=== PATIENT | female | born 1975 | race African-American/Black ===

== ENCOUNTER 2018-08-31 23:33 | Emergency (ER) | payer MEDICAID ==
[~2018-08-31] VITALS: Ht 157.5 cm; Wt 55.0 kg
[2018-09-01 03:22] LABS: CHLORIDE 107 mEq/L (98-107)
[2018-09-01 03:41] LABS: EOSINOPHILS % 2.8 % (0.0-5.0); HEMATOCRIT. 25.9 % (36.0-48.0); HEMOGLOBIN. 8.6 g/dL (12.0-16.0); LYMPHOCYTES % 29.1 % (20.0-50.0); MEAN CORPUSCULAR HEMOGLOBIN 25.5 pg (28.0-32.0); MEAN CORPUSCULAR VOLUME 76.7 fL (81.0-99.0); MEAN PLATELET VOLUME 7.9 fl (7.4-10.4); MONOCYTES % 7.8 % (2.0-8.0); NEUTROPHILS % 59.3 % (40.0-76.0); PLATELET 313 x1000/uL (130-400); RED BLOOD CELL COUNT 3.37 mill/uL (4.2-5.4); RED CELL DISTRIBUTION WIDTH 26.4 % (11.6-14.6)
[2018-09-01 03:54] LABS: CLARITY URINE CLOUDY (CLEAR); COLOR URINE RED (YELLOW); KETONES URINE NEGATIVE (NEGATIVE); LEUKOCYTE ESTERASE URINE 2+ (NEGATIVE); NITRITE URINE NEGATIVE (NEGATIVE); OCCULT BLOOD URINE 3+ (NEGATIVE); PROTEIN URINE 1+ (NEGATIVE); SPECIFIC GRAVITY URINE 1.011 (1.005-1.030); UROBILINOGEN URINE 0.2 E.U./dL (0.2-1.0)
[2018-09-01] MEDS ORDERED: MORPHINE SULFATE 2 MG/ML CPJ (NOT FOR IM USE) IV ONE (04:00)
[2018-09-01 05:10] LABS: PLATELET ESTIMATE NORMAL
[2018-09-01 05:32] LABS: BASOPHILS % 0.5 % (0.0-2.0); EOSINOPHILS % 3.1 % (0.0-5.0); HEMATOCRIT. 25.6 % (36.0-48.0); HEMOGLOBIN. 8.2 g/dL (12.0-16.0); LYMPHOCYTES % 28.5 % (20.0-50.0); MEAN CORPUSCULAR HEMOGLOBIN 24.7 pg (28.0-32.0); MEAN CORPUSCULAR VOLUME 76.5 fL (81.0-99.0); MEAN PLATELET VOLUME 7.8 fl (7.4-10.4); MONOCYTES % 5.7 % (2.0-8.0); NEUTROPHILS % 62.2 % (40.0-76.0); PLATELET 310 x1000/uL (130-400); RED BLOOD CELL COUNT 3.34 mill/uL (4.2-5.4); RED CELL DISTRIBUTION WIDTH 26.1 % (11.6-14.6)
[2018-09-01] MEDS ORDERED: IBUPROFEN 600MG TABLET PO ONE (06:00)
[2018-09-01 06:29] VITALS: BP 125/71
== END 2018-09-01 06:34 | disposition home or self-care (01) ==
LOC: ER 23:33
DX: N93.9 Abnormal uterine and vaginal bleeding, unspecified (principal); N30.00 Acute cystitis without hematuria; D25.9 Leiomyoma of uterus, unspecified; N83.201 Unspecified ovarian cyst, right side; D64.9 Anemia, unspecified; I49.9 Cardiac arrhythmia, unspecified; R03.0 Elevated blood-pressure reading, without diagnosis of hypertension; Z98.890 Other specified postprocedural states; Z98.51 Tubal ligation status
CPT/HCPCS: 36415; 76830; 76856; 80053; 81003; 81025; 85025; 96374; 99285; J2270; Z7610

== ENCOUNTER 2019-09-04 16:47 | Emergency (ER) | payer MEDICAID ==
[~2019-09-04] VITALS: Ht 160 cm; Wt 56.0 kg
[2019-09-04] MEDS ORDERED: VISCOUS LIDOCAINE 2% 15 ML UDC PO ONE (18:30)
[2019-09-04] MEDS ORDERED: MAGNESIUM/ALUMINUM HYDROXIDE/SIMETHICONE 30ML UDC PO ONE (18:30)
[2019-09-04] MEDS ORDERED: ASPIRIN 81MG TABLET PO ONE (18:30)
[2019-09-04 19:08] LABS: BASOPHILS % 0.3 % (0.0-2.0); EOSINOPHILS % 1.5 % (0.0-5.0); HEMATOCRIT. 35.5 % (36.0-48.0); HEMOGLOBIN. 12.2 g/dL (12.0-16.0); MEAN CORPUSCULAR HEMOGLOBIN 33.2 pg (28.0-32.0); MEAN CORPUSCULAR VOLUME 97.1 fL (81.0-99.0); MEAN PLATELET VOLUME 8.4 fl (7.4-10.4); MONOCYTES % 7.9 % (2.0-8.0); NEUTROPHILS % 53.3 % (40.0-76.0); PLATELET 237 x1000/uL (130-400); RED BLOOD CELL COUNT 3.66 mill/uL (4.2-5.4); RED CELL DISTRIBUTION WIDTH 12.9 % (11.6-14.6)
[2019-09-04 19:10] LABS: CHLORIDE 106 mEq/L (98-107)
[2019-09-04] MEDS ORDERED: KETOROLAC 30MG/ML VIAL IV ONE (21:45)
[2019-09-04 21:50] VITALS: BP 144/80
== END 2019-09-04 22:04 | disposition home or self-care (01) ==
LOC: ER 16:47
DX: R07.89 Other chest pain (principal); M79.601 Pain in right arm; I51.9 Heart disease, unspecified; D64.9 Anemia, unspecified; Z98.890 Other specified postprocedural states
CPT/HCPCS: 36415; 71045; 80053; 81025; 83880; 84484; 85025; 93005; 96374; 99284; J1885; Z7610

== ENCOUNTER 2020-11-26 23:22 | Emergency (ER) | payer MEDICAID ==
[~2020-11-26] VITALS: Ht 157.5 cm; Wt 59.0 kg
[2020-11-27] MEDS ORDERED: SODIUM CHLORIDE 0.9% 1,000 ML IV ONE (01:15)
[2020-11-27 02:16] LABS: BASOPHILS % 0.7 % (0.0-2.0); EOSINOPHILS % 1.7 % (0.0-5.0); HEMATOCRIT. 23.1 % (36.0-48.0); LYMPHOCYTES % 44.8 % (20.0-50.0); MEAN CORPUSCULAR HEMOGLOBIN 20.7 pg (28.0-32.0); MEAN CORPUSCULAR VOLUME 68.5 fL (81.0-99.0); MONOCYTES % 5.1 % (2.0-8.0); NEUTROPHILS % 47.7 % (40.0-76.0); PLATELET 335 x1000/uL (130-400); RED BLOOD CELL COUNT 3.38 mill/uL (4.2-5.4); RED CELL DISTRIBUTION WIDTH 20.7 % (11.6-14.6)
[2020-11-27 02:18] LABS: CHLORIDE 107 mEq/L (98-107)
[2020-11-27 02:22] LABS: HCG SCREEN NEGATIVE
[2020-11-27 02:54] LABS: PLATELET ESTIMATE NORMAL
[2020-11-27 10:25] VITALS: BP 135/77
== END 2020-11-27 10:26 | disposition home or self-care (01) ==
LOC: ER 23:22
DX: R53.1 Weakness (principal); D64.9 Anemia, unspecified; Z98.890 Other specified postprocedural states
CPT/HCPCS: 36415; 80053; 84703; 85025; 86850; 86900; 86901; 86920; 96360; 96361; 99285; J7030; P9016

== ENCOUNTER 2021-04-01 21:36 | Emergency (ER) | payer MEDICAID, OTHER ==
[~2021-04-01] VITALS: Ht 157.5 cm; Wt 53.0 kg
[2021-04-01 22:42] VITALS: BP 166/82
[2021-04-02 00:36] LABS: BASOPHILS % 0.9 % (0.0-2.0); EOSINOPHILS % 1.4 % (0.0-5.0); HEMATOCRIT. 26.2 % (36.0-48.0); HEMOGLOBIN. 8.1 g/dL (12.0-16.0); LYMPHOCYTES % 34.6 % (20.0-50.0); MEAN PLATELET VOLUME 7.7 fl (7.4-10.4); MONOCYTES % 6.1 % (2.0-8.0); PLATELET 359 x1000/uL (130-400); RED CELL DISTRIBUTION WIDTH 19.5 % (11.6-14.6)
[2021-04-02 00:40] LABS: CHLORIDE 110 mEq/L (98-107)
[2021-04-02 00:46] LABS: HCG SCREEN NEGATIVE
[2021-04-02] MEDS ORDERED: FERR-71 MT (03:45)
[2021-04-02] MEDS ORDERED: DOCU-138 MT (03:45)
== END 2021-04-02 03:57 | disposition home or self-care (01) ==
LOC: ER 21:36
DX: D64.9 Anemia, unspecified (principal); R07.89 Other chest pain; R00.2 Palpitations; I10 Essential (primary) hypertension; Z98.890 Other specified postprocedural states; Z79.899 Other long term (current) drug therapy
CPT/HCPCS: 36415; 71045; 80053; 84484; 84703; 85025; 86850; 86900; 93005; 99285

== ENCOUNTER 2022-02-28 19:15 | Inpatient (IN) | payer MEDICAID, OTHER ==
[~2022-02-28] VITALS: Ht 157.5 cm; Wt 51.3 kg
[~2022-02-28 19:15] MED LIST: DOCU-138 MT; FERR-71 MT
[2022-02-28 23:28] LABS: *AMPHETAMINES SCREEN URINE NEGATIVE (NEGATIVE); *BENZODIAZEPINES SCREEN URINE NEGATIVE (NEGATIVE); METHADONE URINE SCREEN NEGATIVE (NEGATIVE); OPIATES URINE SCREEN NEGATIVE (NEGATIVE); PHENCYCLIDINE URINE SCREEN NEGATIVE (NEGATIVE)
[2022-02-28 23:29] LABS: *BARBITURATES SCREEN URINE NEGATIVE (NEGATIVE); *COCAINE SCREEN URINE NEGATIVE (NEGATIVE)
[2022-02-28 23:31] LABS: CANNABINOID URINE SCREEN PRESUMTIVE POSITIVE (NEGATIVE)
[2022-03-01] VITALS (20 sets, daily range): BP systolic 95–171; BP diastolic 55–98
[2022-03-01 00:20] LABS: CHLORIDE 110 mEq/L (98-107)
[2022-03-01 00:24] LABS: ETHANOL BLOOD < 10 mg/dL
[2022-03-01 00:29] LABS: BASOPHILS % 0.3 % (0.0-2.0); EOSINOPHILS % 0.1 % (0.0-5.0); LYMPHOCYTES % 15.1 % (20.0-50.0); MEAN CORPUSCULAR HEMOGLOBIN 19.1 pg (28.0-32.0); MEAN CORPUSCULAR VOLUME 64.1 fL (81.0-99.0); MEAN PLATELET VOLUME 8.2 fl (7.4-10.4); MONOCYTES % 5.1 % (2.0-8.0); NEUTROPHILS % 79.4 % (40.0-76.0); PLATELET 274 x1000/uL (130-400); RED BLOOD CELL COUNT 3.03 mill/uL (4.2-5.4); RED CELL DISTRIBUTION WIDTH 21.1 % (11.6-14.6)
[2022-03-01 00:35] LABS: HEMATOCRIT. 19.4 % (36.0-48.0); HEMOGLOBIN. 5.8 g/dL (12.0-16.0)
[2022-03-01] MEDS ORDERED: ACETAMINOPHEN 500MG TABLET PO ONE (03:30)
[2022-03-01] MEDS ORDERED: DIPHENHYDRAMINE 50MG CAPSULE PO SCH (03:30)
[2022-03-01 03:38] LABS: PLATELET ESTIMATE NORMAL
[2022-03-01] MEDS: AMLODIPINE 10MG TABLET PO SCH (09:04)
[2022-03-01 11:18] LABS: HEMATOCRIT 19.9 % (36.0-48.0); HEMOGLOBIN 5.9 g/dL (12.0-16.0)
[2022-03-01 11:23] LABS: CLARITY URINE CLOUDY (CLEAR); COLOR URINE YELLOW (YELLOW); KETONES URINE 1+ (NEGATIVE); LEUKOCYTE ESTERASE URINE 3+ (NEGATIVE); NITRITE URINE POSITIVE (NEGATIVE); OCCULT BLOOD URINE TRACE (NEGATIVE); PH URINE 6.5 (4.5-8.0); PROTEIN URINE TRACE (NEGATIVE)
[2022-03-01] MEDS ORDERED: CEFTRIAXONE 1 G PREMIX 50 ML IV SCH (12:00)
[2022-03-01] MEDS: CEFTRIAXONE 1,000 MG in DEXTROSE 5% WATER 50 ML IV SCH (14:16)
[2022-03-01] MEDS ORDERED: DIPHENHYDRAMINE 25MG CAPSULE PO PRN (14:45)
[2022-03-01] MEDS: ACETAMINOPHEN 325MG TABLET PO PRN (16:09)
[2022-03-01 16:57] LABS: TOTAL IRON BINDING CAPACITY 393 ug/dL (250-450)
[2022-03-01 17:16] LABS: FOLIC ACID (FOLATE) SERUM 8.2 ng/mL (>5.38)
[2022-03-01 20:44] LABS: HEMATOCRIT 25.2 % (36.0-48.0); HEMOGLOBIN 7.8 g/dL (12.0-16.0)
[2022-03-01 20:51] LABS: HCG SCREEN NEGATIVE
[2022-03-01] MEDS: ONDANSETRON HCL 4MG/2ML INJ IV PRN (23:10)
[2022-03-01] MEDS ORDERED: IOHEXOL-300 100 ML BOTTLE ONE (23:25)
[2022-03-01] MEDS ORDERED: CLONIDINE 0.1MG TABLET PO PRN (23:30)
[2022-03-01] MEDS: HYDROCODONE/ACETAMINOPHEN 5/325MG TABLET PO PRN (23:37)
[2022-03-01] MEDS ORDERED: NALOXONE HCL 0.4 MG/ML 1ML VIAL IV PRN (23:45)
[2022-03-02] VITALS (12 sets, daily range): BP systolic 101–136; BP diastolic 51–85
[2022-03-02 00:44] LABS: HEMATOCRIT 24.6 % (36.0-48.0); HEMOGLOBIN 7.6 g/dL (12.0-16.0)
[2022-03-02 06:39] LABS: HEMOGLOBIN. 7.6 g/dL (12.0-16.0); MEAN CORPUSCULAR HEMOGLOBIN 21.1 pg (28.0-32.0); MEAN CORPUSCULAR VOLUME 66.6 fL (81.0-99.0); MEAN PLATELET VOLUME 8.4 fl (7.4-10.4); PLATELET 274 x1000/uL (130-400); RED CELL DISTRIBUTION WIDTH 23.9 % (11.6-14.6)
[2022-03-02 07:03] LABS: CHLORIDE 104 mEq/L (98-107)
[2022-03-02] MEDS: AMLODIPINE 10MG TABLET PO SCH (09:00)
[2022-03-02] MEDS: ACETAMINOPHEN 325MG TABLET PO PRN (11:47)
[2022-03-02 12:33] LABS: HEMATOCRIT 25.3 % (36.0-48.0); HEMOGLOBIN 7.8 g/dL (12.0-16.0)
[2022-03-02] MEDS: CEFTRIAXONE 1,000 MG in DEXTROSE 5% WATER 50 ML IV SCH (12:46)
[2022-03-02 15:16] LABS: PLATELET ESTIMATE NORMAL
[2022-03-02] MEDS: HYDROCODONE/ACETAMINOPHEN 5/325MG TABLET PO PRN ×2 (16:30→22:27)
[2022-03-02] MEDS: IRON SUCROSE COMPLEX 100 MG/5 ML ML IV SCH (16:54)
[2022-03-02 20:38] LABS: HEMATOCRIT 27.9 % (36.0-48.0); HEMOGLOBIN 8.4 g/dL (12.0-16.0)
[2022-03-03] VITALS (12 sets, daily range): BP systolic 98–143; BP diastolic 55–68
[2022-03-03 06:10] LABS: HEMATOCRIT. 25.2 % (36.0-48.0); HEMOGLOBIN. 7.8 g/dL (12.0-16.0); MEAN CORPUSCULAR HEMOGLOBIN 20.7 pg (28.0-32.0); MEAN CORPUSCULAR VOLUME 66.8 fL (81.0-99.0); PLATELET 286 x1000/uL (130-400); RED BLOOD CELL COUNT 3.78 mill/uL (4.2-5.4); RED CELL DISTRIBUTION WIDTH 24.1 % (11.6-14.6)
[2022-03-03 06:42] LABS: CHLORIDE 99 mEq/L (98-107)
[2022-03-03] MEDS: CYANOCOBALAMIN 100MCG TABLET PO SCH (08:15)
[2022-03-03] MEDS: ACETAMINOPHEN 325MG TABLET PO PRN (08:15)
[2022-03-03] MEDS: AMLODIPINE 10MG TABLET PO SCH (08:15)
[2022-03-03 12:07] LABS: HEMATOCRIT 25.3 % (36.0-48.0); HEMOGLOBIN 7.8 g/dL (12.0-16.0)
[2022-03-03] MEDS: CEFTRIAXONE 1,000 MG in DEXTROSE 5% WATER 50 ML IV SCH (12:39)
[2022-03-03] MEDS: HYDROCODONE/ACETAMINOPHEN 5/325MG TABLET PO PRN ×2 (15:13→21:32)
[2022-03-03] MEDS: IRON SUCROSE COMPLEX 100 MG/5 ML ML IV SCH (17:09)
[2022-03-03 18:34] LABS: PLATELET ESTIMATE NORMAL
[2022-03-03 20:39] LABS: HEMATOCRIT 27.3 % (36.0-48.0); HEMOGLOBIN 8.3 g/dL (12.0-16.0)
[2022-03-04] VITALS (8 sets, daily range): BP systolic 97–121; BP diastolic 43–67
[2022-03-04 07:20] LABS: BASOPHILS % 0.4 % (0.0-2.0); EOSINOPHILS % 0.2 % (0.0-5.0); HEMATOCRIT. 25.2 % (36.0-48.0); HEMOGLOBIN. 8.1 g/dL (12.0-16.0); LYMPHOCYTES % 10.6 % (20.0-50.0); MEAN CORPUSCULAR HEMOGLOBIN 21.6 pg (28.0-32.0); MEAN CORPUSCULAR VOLUME 67.5 fL (81.0-99.0); MEAN PLATELET VOLUME 8.7 fl (7.4-10.4); MONOCYTES % 10.4 % (2.0-8.0); NEUTROPHILS % 78.4 % (40.0-76.0); PLATELET 339 x1000/uL (130-400); RED BLOOD CELL COUNT 3.73 mill/uL (4.2-5.4); RED CELL DISTRIBUTION WIDTH 24.4 % (11.6-14.6)
[2022-03-04 07:27] LABS: PROTHROMBIN TIME 10.4 sec (9.6-11.0)
[2022-03-04 07:38] LABS: CHLORIDE 100 mEq/L (98-107)
[2022-03-04] MEDS: CYANOCOBALAMIN 100MCG TABLET PO SCH (07:57)
[2022-03-04] MEDS: HYDROCODONE/ACETAMINOPHEN 5/325MG TABLET PO PRN ×2 (07:59→22:33)
[2022-03-04] MEDS: AMLODIPINE 10MG TABLET PO SCH (08:00)
[2022-03-04] MEDS: ONDANSETRON HCL 4MG/2ML INJ IV PRN (08:13)
[2022-03-04] MEDS: CEFTRIAXONE 1,000 MG in DEXTROSE 5% WATER 50 ML IV SCH (13:24)
[2022-03-04 14:34] LABS: T4 FREE 1.13 ng/dL (0.76-1.46)
[2022-03-04] MEDS: IRON SUCROSE COMPLEX 100 MG/5 ML ML IV SCH (16:56)
[2022-03-04] MEDS: ACETAMINOPHEN 325MG TABLET PO PRN (16:59)
[2022-03-04] MEDS: CYANOCOBALAMIN 1000MCG/ML VIAL IM SCH (18:13)
[2022-03-05] VITALS (8 sets, daily range): BP systolic 91–122; BP diastolic 48–81
[2022-03-05] MEDS: CYANOCOBALAMIN 1000MCG/ML VIAL IM SCH (08:17)
[2022-03-05] MEDS: AMLODIPINE 10MG TABLET PO SCH (08:17)
[2022-03-05 08:30] LABS: BASOPHILS % 0.4 % (0.0-2.0); EOSINOPHILS % 0.8 % (0.0-5.0); HEMATOCRIT. 25.7 % (36.0-48.0); HEMOGLOBIN. 8.1 g/dL (12.0-16.0); LYMPHOCYTES % 16.9 % (20.0-50.0); MEAN CORPUSCULAR HEMOGLOBIN 21.4 pg (28.0-32.0); MEAN CORPUSCULAR VOLUME 68.2 fL (81.0-99.0); MONOCYTES % 9.3 % (2.0-8.0); NEUTROPHILS % 72.6 % (40.0-76.0); PLATELET 389 x1000/uL (130-400); RED BLOOD CELL COUNT 3.77 mill/uL (4.2-5.4); RED CELL DISTRIBUTION WIDTH 25.1 % (11.6-14.6)
[2022-03-05 08:40] LABS: PROTHROMBIN TIME 10.3 sec (9.6-11.0)
[2022-03-05 08:41] LABS: CHLORIDE 101 mEq/L (98-107)
[2022-03-05] MEDS: CEFTRIAXONE 1,000 MG in DEXTROSE 5% WATER 50 ML IV SCH (13:09)
[2022-03-05] MEDS: HYDROCODONE/ACETAMINOPHEN 5/325MG TABLET PO PRN ×2 (16:38→22:58)
[2022-03-05] MEDS: PANTOPRAZOLE SODIUM 40 MG/VIAL IV SCH (21:47)
[2022-03-06] VITALS (9 sets, daily range): BP systolic 100–155; BP diastolic 63–82
[2022-03-06 07:06] LABS: BASOPHILS % 0.7 % (0.0-2.0); EOSINOPHILS % 1.7 % (0.0-5.0); HEMATOCRIT. 25.7 % (36.0-48.0); HEMOGLOBIN. 7.9 g/dL (12.0-16.0); LYMPHOCYTES % 21.9 % (20.0-50.0); MEAN CORPUSCULAR HEMOGLOBIN 21.4 pg (28.0-32.0); MEAN CORPUSCULAR VOLUME 69.5 fL (81.0-99.0); MEAN PLATELET VOLUME 7.8 fl (7.4-10.4); MONOCYTES % 10.3 % (2.0-8.0); NEUTROPHILS % 65.4 % (40.0-76.0); PLATELET 417 x1000/uL (130-400); RED BLOOD CELL COUNT 3.69 mill/uL (4.2-5.4); RED CELL DISTRIBUTION WIDTH 24.7 % (11.6-14.6)
[2022-03-06 07:15] LABS: CHLORIDE 105 mEq/L (98-107)
[2022-03-06 07:21] LABS: PROTHROMBIN TIME 10.3 sec (9.6-11.0)
[2022-03-06] MEDS: AMLODIPINE 10MG TABLET PO SCH (09:00)
[2022-03-06] MEDS: PANTOPRAZOLE SODIUM 40 MG/VIAL IV SCH ×2 (10:03→22:56)
[2022-03-06] MEDS: CYANOCOBALAMIN 1000MCG/ML VIAL IM SCH (10:03)
[2022-03-06] MEDS ORDERED: AMLO10TA80 PO (11:01)
[2022-03-06] MEDS ORDERED: OMEP40CA20 MT (11:01)
[2022-03-06] MEDS ORDERED: LEVO500T89 MT (11:01)
[2022-03-06] MEDS ORDERED: MIDAZOLAM HCL 2 MG/2 ML VIAL ONE (11:12)
[2022-03-06] MEDS ORDERED: PROPOFOL 200MG/20ML VIAL IV ONE (11:12)
[2022-03-06] MEDS ORDERED: LIDOCAINE HCL 1% 10 MG/ML 10ML VIAL ONE (11:12)
[2022-03-06] MEDS ORDERED: EPHEDRINE SULFATE 50MG/ML VIAL ONE (12:05)
[2022-03-06] MEDS: CEFTRIAXONE 1,000 MG in DEXTROSE 5% WATER 50 ML IV SCH (14:21)
[2022-03-06] MEDS: SUCRALFATE 1G TABLET PO SCH ×2 (17:42→22:56)
[2022-03-06] MEDS ORDERED: DIATR MEGLU/DIATRIZOATE SOLN 30ML PO SCH (18:30)
[2022-03-06] MEDS: HYDROCODONE/ACETAMINOPHEN 5/325MG TABLET PO PRN (19:49)
[2022-03-07 00:10] VITALS: BP 105/64
[2022-03-07 04:10] VITALS: BP 110/68
[2022-03-07] MEDS: SUCRALFATE 1G TABLET PO SCH ×4 (06:32→16:02)
[2022-03-07 07:18] LABS: BASOPHILS % 0.4 % (0.0-2.0); EOSINOPHILS % 1.9 % (0.0-5.0); HEMATOCRIT. 27.1 % (36.0-48.0); HEMOGLOBIN. 8.4 g/dL (12.0-16.0); LYMPHOCYTES % 22.4 % (20.0-50.0); MEAN CORPUSCULAR HEMOGLOBIN 21.5 pg (28.0-32.0); MEAN CORPUSCULAR VOLUME 69.3 fL (81.0-99.0); MEAN PLATELET VOLUME 7.5 fl (7.4-10.4); MONOCYTES % 8.5 % (2.0-8.0); NEUTROPHILS % 66.8 % (40.0-76.0); PLATELET 509 x1000/uL (130-400); RED CELL DISTRIBUTION WIDTH 24.9 % (11.6-14.6)
[2022-03-07 07:58] LABS: CHLORIDE 105 mEq/L (98-107)
[2022-03-07 08:00] VITALS: BP 126/66
[2022-03-07] MEDS: PANTOPRAZOLE SODIUM 40 MG/VIAL IV SCH (10:08)
[2022-03-07] MEDS: AMLODIPINE 10MG TABLET PO SCH (10:09)
[2022-03-07] MEDS: CYANOCOBALAMIN 1000MCG/ML VIAL IM SCH (10:09)
[2022-03-07 12:00] VITALS: BP 108/77
[2022-03-07] MEDS: ACETAMINOPHEN 325MG TABLET PO PRN (13:20)
[2022-03-07 16:00] VITALS: BP 101/70
== END 2022-03-07 17:09 | disposition home or self-care (01) | DRG 720 ==
LOC: ER 19:25 → ENRESERV 03-01 05:21 → 3WST 03-01 07:34 → 6WST 03-07 06:52 → 3WST 03-07 06:55 → 6EST 03-07 08:29
PROVIDERS: ADMIT Internal Medicine; ATTEND Internal Medicine
PROC: 30233N1 Transfusion of Nonautologous Red Blood Cells into Peripheral Vein, Percutaneous Approach (ICD-10-PCS; 2022-03-01)
PROC: 0DB68ZX Excision of Stomach, Via Natural or Artificial Opening Endoscopic, Diagnostic (ICD-10-PCS; principal; 2022-03-06)
DX: A41.51 Sepsis due to Escherichia coli [E. coli] (principal); E44.1 Mild protein-calorie malnutrition; E87.1 Hypo-osmolality and hyponatremia; T80.92XA Unspecified transfusion reaction, initial encounter; E87.8 Other disorders of electrolyte and fluid balance, not elsewhere classified; K76.89 Other specified diseases of liver; D49.0 Neoplasm of unspecified behavior of digestive system; N12 Tubulo-interstitial nephritis, not specified as acute or chronic; D50.9 Iron deficiency anemia, unspecified; D25.9 Leiomyoma of uterus, unspecified; D64.9 Anemia, unspecified; E11.9 Type 2 diabetes mellitus without complications; Z20.822 Contact with and (suspected) exposure to COVID-19; F12.90 Cannabis use, unspecified, uncomplicated; I10 Essential (primary) hypertension; Y84.8 Other medical procedures as the cause of abnormal reaction of the patient, or of later complication, without mention of misadventure at the time of the procedure; Y83.8 Other surgical procedures as the cause of abnormal reaction of the patient, or of later complication, without mention of misadventure at the time of the procedure; R59.0 Localized enlarged lymph nodes; F41.9 Anxiety disorder, unspecified; Z98.891 History of uterine scar from previous surgery; Z82.49 Family history of ischemic heart disease and other diseases of the circulatory system; Y92.89 Other specified places as the place of occurrence of the external cause; Z68.20 Body mass index [BMI] 20.0-20.9, adult; Z80.9 Family history of malignant neoplasm, unspecified; R51.9 Headache, unspecified; Z83.2 Family history of diseases of the blood and blood-forming organs and certain disorders involving the immune mechanism
CPT/HCPCS: 36415; 71045; 74177; 76700; 80048; 80053; 80305; 80320; 81003; 82378; 82607; 82728; 82746; 83036; 83540; 83550; 83880; 84145; 84439; 84443; 84481; 84484; 84703; 85014; 85018; 85025; 86078; 86850; 86900; 86920; 87077; 87186; 87426; 88305; 88312; 88313; 93005; 99285; C9113; J0696; J2250; J2405; J2704; J3420; J3490; J7060; P9016; Q0163; Q9963; Q9967; G0480

== ENCOUNTER 2022-06-17 00:20 | Emergency (ER) | payer OTHER ==
[~2022-06-17] VITALS: Ht 157.5 cm; Wt 47.0 kg
[~2022-06-17 00:20] MED LIST changes: +AMLO10TA80 PO; +OMEP40CA20 MT
[2022-06-17 00:58] VITALS: BP 104/72
[2022-06-17 08:48] LABS: BASOPHILS % 0.7 % (0.0-2.0); EOSINOPHILS % 2.3 % (0.0-5.0); HEMATOCRIT. 31.3 % (36.0-48.0); HEMOGLOBIN. 10.4 g/dL (12.0-16.0); LYMPHOCYTES % 30.4 % (20.0-50.0); MEAN CORPUSCULAR HEMOGLOBIN 29.5 pg (28.0-32.0); MEAN PLATELET VOLUME 7.7 fl (7.4-10.4); MONOCYTES % 5.9 % (2.0-8.0); NEUTROPHILS % 60.7 % (40.0-76.0); PLATELET 365 x1000/uL (130-400); RED BLOOD CELL COUNT 3.52 mill/uL (4.2-5.4); RED CELL DISTRIBUTION WIDTH 14.7 % (11.6-14.6)
[2022-06-17 08:56] LABS: CHLORIDE 108 mEq/L (98-107)
[2022-06-17 08:58] LABS: PROTHROMBIN TIME 10.8 sec (9.6-11.0)
[2022-06-17] MEDS ORDERED: MORPHINE SULFATE 10 MG/ML CPJ IM ONE (11:15)
[2022-06-17] MEDS ORDERED: HYDR-4001 MT ×3 (12:17→13:20)
== END 2022-06-17 12:42 | disposition home or self-care (01) ==
LOC: ER 00:20
DX: R10.13 Epigastric pain (principal)
CPT/HCPCS: 36415; 80053; 83690; 85025; 85610; 93005; 96372; 99284; J2270

== ENCOUNTER 2022-08-01 22:50 | Emergency (ER) | payer OTHER ==
[~2022-08-01] VITALS: Ht 157.5 cm; Wt 52.0 kg
[~2022-08-01 22:50] MED LIST changes: +HYDR-4001 MT
[2022-08-02] MEDS ORDERED: T3 PO (08:38)
[2022-08-02] MEDS ORDERED: HYDROCODONE/ACETAMINOPHEN 5/325MG TABLET PO ONE (08:45)
[2022-08-02 08:50] VITALS: BP 122/62
== END 2022-08-02 09:17 | disposition home or self-care (01) ==
LOC: ER 22:50
DX: G89.29 Other chronic pain (principal); R10.84 Generalized abdominal pain; E11.9 Type 2 diabetes mellitus without complications; I11.9 Hypertensive heart disease without heart failure; Z85.028 Personal history of other malignant neoplasm of stomach; Z98.890 Other specified postprocedural states
CPT/HCPCS: 81025; 99283

== ENCOUNTER 2022-10-27 19:32 | Inpatient (IN) | payer OTHER ==
[~2022-10-27] VITALS: Ht 157.5 cm; Wt 48.8 kg
[~2022-10-27 19:32] MED LIST changes: +ONDA4TAB50 MT; +SUCR1TAB MT; +T3 PO
[2022-10-28 01:06] LABS: BASOPHILS % 0.8 % (0.0-2.0); HEMATOCRIT. 30.4 % (36.0-48.0); HEMOGLOBIN. 9.7 g/dL (12.0-16.0); LYMPHOCYTES % 20.7 % (20.0-50.0); MEAN CORPUSCULAR HEMOGLOBIN 25.7 pg (28.0-32.0); MEAN CORPUSCULAR VOLUME 80.6 fL (81.0-99.0); MEAN PLATELET VOLUME 6.7 fl (7.4-10.4); NEUTROPHILS % 73.5 % (40.0-76.0); PLATELET 321 x1000/uL (130-400); RED BLOOD CELL COUNT 3.77 mill/uL (4.2-5.4); RED CELL DISTRIBUTION WIDTH 17.7 % (11.6-14.6)
[2022-10-28 01:29] LABS: PROTHROMBIN TIME 10.4 sec (9.6-11.0)
[2022-10-28 04:04] LABS: CHLORIDE 102 mEq/L (98-107)
[2022-10-28] MEDS ORDERED: ONDANSETRON HCL 4MG/2ML INJ IV PRN (09:45)
[2022-10-28] MEDS ORDERED: FUROSEMIDE 40MG/4ML VIAL IVP NR (10:00)
[2022-10-28] MEDS ORDERED: POTASSIUM CHLORIDE 20MEQ TABLET SR PO NR (10:00)
[2022-10-28] MEDS ORDERED: NALOXONE HCL 0.4MG/ML VIAL IV PRN (10:00)
[2022-10-28] MEDS ORDERED: LIDOCAINE HCL 1% 30ML VIAL (10MG/ML) ONE (12:14)
[2022-10-28] MEDS ORDERED: SODIUM BICARBONATE 4% (2.4MEQ) 5ML VIAL IV ONE (12:14)
[2022-10-28 16:00] VITALS: BP 102/66
[2022-10-28 16:17] VITALS: BP 102/66
[2022-10-28] MEDS ORDERED: DEXA4TAB MT (16:59)
[2022-10-28] MEDS: FUROSEMIDE 40MG/4ML VIAL IVP SCH (17:54)
[2022-10-28] MEDS: HYDROCODONE/ACETAMINOPHEN 5/325MG TABLET PO PRN (17:56)
[2022-10-28 20:00] VITALS: BP 124/94
[2022-10-29] VITALS (7 sets, daily range): BP systolic 98–108; BP diastolic 54–69
[2022-10-29] MEDS: FUROSEMIDE 40MG/4ML VIAL IVP SCH ×2 (06:47→17:56)
[2022-10-29] MEDS: HYDROCODONE/ACETAMINOPHEN 5/325MG TABLET PO PRN (09:13)
[2022-10-29] MEDS ORDERED: FURO-151 MT (12:38)
[2022-10-29] MEDS ORDERED: SPIR100T5 MT (12:38)
[2022-10-30 06:58] LABS: CHLORIDE 98 mEq/L (98-107)
== END 2022-10-29 20:43 | disposition home or self-care (01) ==
LOC: ER 19:32 → MICUSO 10-28 00:23 → 7EST 10-28 15:46
PROVIDERS: ADMIT Internal Medicine; ATTEND Internal Medicine
PROC: 0W9G3ZZ Drainage of Peritoneal Cavity, Percutaneous Approach (ICD-10-PCS; principal; 2022-10-28)
DX: R18.8 Other ascites (principal); C16.9 Malignant neoplasm of stomach, unspecified; E43 Unspecified severe protein-calorie malnutrition; E87.6 Hypokalemia; D64.9 Anemia, unspecified; I10 Essential (primary) hypertension; Z20.822 Contact with and (suspected) exposure to COVID-19; Z79.899 Other long term (current) drug therapy; Z68.1 Body mass index [BMI] 19.9 or less, adult; Z98.891 History of uterine scar from previous surgery
CPT/HCPCS: 36415; 49083; 80048; 80053; 85025; 87426; 88108; 93306; 99285; J1940; J3490

== ENCOUNTER 2023-01-11 21:22 | Inpatient (IN) | payer OTHER ==
[~2023-01-11] VITALS: Ht 157.5 cm; Wt 33.8 kg
[~2023-01-11 21:22] MED LIST changes: -DOCU-138 MT; -FERR-71 MT; +FURO-151 MT; +SPIR100T5 MT; -T3 PO
[2023-01-12] MEDS ORDERED: MORPHINE SULFATE 4 MG/ML CPJ (NOT FOR IM USE) IV STA (09:53)
[2023-01-12] MEDS ORDERED: PANTOPRAZOLE SODIUM 40 MG/VIAL IV STA (09:53)
[2023-01-12] MEDS ORDERED: ONDANSETRON HCL 4MG/2ML INJ IV STA (09:53)
[2023-01-12] MEDS ORDERED: SODIUM CHLORIDE 0.9% 1,000 ML IV ONE (10:00)
[2023-01-12 10:37] LABS: BASOPHILS % 0.4 % (0.0-2.0); EOSINOPHILS % 0.4 % (0.0-5.0); HEMATOCRIT. 31.2 % (36.0-48.0); HEMOGLOBIN. 9.8 g/dL (12.0-16.0); LYMPHOCYTES % 14.7 % (20.0-50.0); MEAN CORPUSCULAR HEMOGLOBIN 22.8 pg (28.0-32.0); MEAN CORPUSCULAR VOLUME 72.6 fL (81.0-99.0); MEAN PLATELET VOLUME 6.8 fl (7.4-10.4); MONOCYTES % 5.9 % (2.0-8.0); NEUTROPHILS % 78.6 % (40.0-76.0); PLATELET 276 x1000/uL (130-400)
[2023-01-12 10:44] LABS: CHLORIDE 95 mEq/L (98-107)
[2023-01-12 10:49] LABS: PROTHROMBIN TIME 10.6 sec (9.6-11.0)
[2023-01-12] MEDS ORDERED: POTASSIUM CHLORIDE 20MEQ TABLET SR PO NR (11:15)
[2023-01-12] MEDS ORDERED: MORPHINE SULFATE 15MG TABLET SR PO NR (14:00)
[2023-01-12] MEDS ORDERED: ONDANSETRON HCL 4MG/2ML INJ IV PRN (14:00)
[2023-01-12] MEDS ORDERED: NALOXONE HCL 0.4MG/ML VIAL IV PRN (14:15)
[2023-01-12 17:15] VITALS: BP 102/74
[2023-01-12 20:00] VITALS: BP 109/74
[2023-01-12] MEDS: MORPHINE SULFATE 15MG TABLET SR PO SCH (21:06)
[2023-01-13] VITALS: BP 96/75
[2023-01-13] MEDS: HYDROCODONE/ACETAMINOPHEN 5/325MG TABLET PO PRN ×2 (02:11→17:30)
[2023-01-13 04:00] VITALS: BP 93/66
[2023-01-13 07:06] LABS: BASOPHILS % 0.6 % (0.0-2.0); EOSINOPHILS % 0.1 % (0.0-5.0); HEMATOCRIT. 31.1 % (36.0-48.0); HEMOGLOBIN. 9.5 g/dL (12.0-16.0); LYMPHOCYTES % 12.9 % (20.0-50.0); MEAN CORPUSCULAR HEMOGLOBIN 22.7 pg (28.0-32.0); MEAN CORPUSCULAR VOLUME 74.6 fL (81.0-99.0); MEAN PLATELET VOLUME 7.1 fl (7.4-10.4); NEUTROPHILS % 81.4 % (40.0-76.0); PLATELET 301 x1000/uL (130-400); RED BLOOD CELL COUNT 4.17 mill/uL (4.2-5.4); RED CELL DISTRIBUTION WIDTH 19.9 % (11.6-14.6)
[2023-01-13 07:50] LABS: CHLORIDE 98 mEq/L (98-107)
[2023-01-13 08:00] VITALS: BP 100/67
[2023-01-13] MEDS ORDERED: LIDOCAINE HCL 1% 10 MG/ML 10ML VIAL ONE (08:09)
[2023-01-13] MEDS ORDERED: SODIUM BICARBONATE 4% (2.4MEQ) 5ML VIAL IV ONE (08:09)
[2023-01-13] MEDS ORDERED: POTASSIUM CHLORIDE 20MEQ TABLET SR PO NR (09:15)
[2023-01-13] MEDS ORDERED: OMEPRAZOLE 20MG CAPSULE EXTENDED RELEASE PO SCH (09:15)
[2023-01-13] MEDS: MORPHINE SULFATE 15MG TABLET SR PO SCH (09:50)
[2023-01-13 18:17] VITALS: BP 100/67
== END 2023-01-13 19:45 | disposition home or self-care (01) | DRG 240 ==
LOC: ER 21:22 → 6EST 01-12 13:48 → EDBEDREQ 01-12 13:51 → EDBEDREQTM 01-12 13:51 → ENRESERV 01-12 14:33
PROVIDERS: ADMIT Internal Medicine; ATTEND Internal Medicine
PROC: 0W9G3ZZ Drainage of Peritoneal Cavity, Percutaneous Approach (ICD-10-PCS; principal; 2023-01-13)
DX: C16.9 Malignant neoplasm of stomach, unspecified (principal); R18.0 Malignant ascites; E44.0 Moderate protein-calorie malnutrition; E87.1 Hypo-osmolality and hyponatremia; D64.9 Anemia, unspecified; E87.6 Hypokalemia; I10 Essential (primary) hypertension; Z20.822 Contact with and (suspected) exposure to COVID-19; Z98.891 History of uterine scar from previous surgery; Z79.899 Other long term (current) drug therapy; Z68.1 Body mass index [BMI] 19.9 or less, adult
CPT/HCPCS: 36415; 49083; 74176; 80048; 80053; 85025; 87426; 93005; 99285; C9113; J2270; J2405; J3490; J7030